=== PATIENT | male | born 1950 | race Caucasian/White ===

== ENCOUNTER 2016-08-15 14:29 | Emergency (ER) | payer OTHER ==
[2016-08-15 14:44] VITALS: RESP 16; TEMP 99.1; O2SAT 95
[2016-08-15] MEDS ORDERED: predniSONE 20 MG TAB PO ONE (15:40)
[2016-08-15] MEDS ORDERED: IPRATROPIUM/ALBUTEROL 3 ML DEYVIAL IH ONE (15:40)
--- NOTE | 2016-08-15 15:43 | EDPHY ---
H & P Stated Complaint: dyspnea x7 day, SNOW Time Seen by Provider: 08/15/16 15:34 HPI/ROS: CHIEF COMPLAINT: Dyspnea HISTORY OF PRESENT ILLNESS: The patient is a 66-year-old man with a history of COPD who comes to the emergency department complaining of mild shortness of breath as well as a productive cough for the last 5 days. He states that he was around someone with pneumonia about a week ago. He has not had a fever but has had the chills. No chest pain. No nausea vomiting or GI symptoms. No runny nose or sore throat. No headache. He states that usually when this happens he comes to the ER for a breathing treatment and steroids. He has been using albuterol at home 2-3 times per day without significant improvement. REVIEW OF SYSTEMS: Constitutional: denies: chills, fever, recent illness, recent injury EENTM: denies: blurred vision, double vision, nose congestion Respiratory: See HPI Cardiac: denies: chest pain, irregular heart rate, lightheadedness, palpitations Gastrointestinal/Abdominal: denies: abdominal pain, diarrhea, nausea, vomiting, blood streaked stools Genitourinary: denies: dysuria, frequency, hematuria, pain Musculoskeletal: denies: joint pain, muscle pain Skin: denies: lesions, rash, jaundice, bruising Neurological: denies: headache, numbness, paresthesia, tingling, dizziness, weakness Hematologic/Lymphatic: denies: blood clots, easy bleeding, easy bruising Immunologic/allergic: denies: HIV/AIDS, transplant EXAM: GENERAL: Well-appearing, well-nourished and in no acute distress. HEAD: Atraumatic, normocephalic. EYES: Pupils equal round and reactive to light, extraocular movements intact, sclera anicteric, conjunctiva are normal. ENT: TMs normal, nares patent, oropharynx clear without exudates. Moist mucous membranes. NECK: Normal range of motion, supple without lymphadenopathy or JVD. LUNGS: Breath sounds clear to auscultation bilaterally and equal. No wheezes rales or rhonchi. HEART: Regular rate and rhythm without murmurs, rubs or gallops. ABDOMEN: Soft, nontender, normoactive bowel sounds. No guarding, no rebound. No masses appreciated. BACK: No CVA tenderness, no spinal tenderness, step-offs or deformities EXTREMITIES: Normal range of motion, no pitting or edema. No clubbing or cyanosis. NEUROLOGICAL: Cranial nerves II through XII grossly intact. Normal speech, normal gait. 5/5 strength, normal movement in all extremities, normal sensation PSYCH: Normal mood, normal affect. SKIN: Warm, dry, normal turgor, no visible rashes or lesions. Source: Patient Exam Limitations: No limitations - Personal History Current Tetanus/Diphtheria Vaccine: Yes Current Tetanus Diphtheria and Acellular Pertussis (TDAP): Yes Tetanus Vaccine Date: < 10 YEARS - Medical/Surgical History Hx Asthma: Yes Hx Chronic Respiratory Disease: Yes Hx Diabetes: No Hx Cardiac Disease: No Hx Renal Disease: No Hx Cirrhosis: No Hx Alcoholism: No Hx HIV/AIDS: No Hx Splenectomy or Spleen Trauma: No Other PMH: medical- asthma, anxiety, ADD, hypothyroid. surgical- appy, tonsilectomy, hernia rpr, ORIF tawnya in RLE T/F, COPD - Family History Significant Family History: Hypertension - Social History Smoking Status: Former smoker Alcohol Use: Sober Drug Use: None Constitutional: Initial Vital Signs Temperature (C) 37.3 C 08/15/16 14:41 Heart Rate 95 08/15/16 14:41 Respiratory Rate 16 08/15/16 14:41 Blood Pressure 153/83 H 08/15/16 14:41 O2 Sat (%) 95 08/15/16 14:41 O2 Delivery Mode Room Air O2 (L/minute) 2 Allergies/Adverse Reactions: codeine [Codeine] Allergy (Verified 05/11/16 18:34) Wheezing Home Medications: Medication Instructions Recorded Albuterol Sulfate [Albuterol 1 - 2 puffs IH Q4H 03/10/15 Inhaler Hfa] Amphet Asp and D/Amphet [Adderall 15 mg PO DAILY@08 03/10/15 10 MG (*)] Amphet Asp and D/Amphet [Adderall 25 mg PO DAILY@1500 03/10/15 10 MG (*)] DESVENLAFAXINE SUCCINATE [PRISTIQ] 50 mg PO DAILY 03/10/15 Levothyroxine [Synthroid 75 mcg 75 mcg PO DAILY06 03/10/15 (*)] clonazePAM [Klonopin (*)] 0.5 mg PO QID PRN 03/10/15 Albuterol [Proventil Inhaler HFA 1 - 2 puffs IH Q4 #1 mdi 05/11/16 (*)] predniSONE 20 mg PO BID #8 tablet 05/11/16 AZITHROMYCIN [Z-PACK] 250 mg PO DAILY #6 tab 08/15/16 Albuterol [Proventil Inhaler] 1 - 2 puffs IH Q4H #1 mdi 08/15/16 predniSONE 60 mg PO DAILY #15 tab 08/15/16 Medical Decision Making - Diagnostics EKG Interpretation: An EKG obtained and was read and documented in trace view. Please see trace view for full reading and report. Sinus rhythm, no acute ischemic changes ED Course/Re-evaluation: 4:40 p.m. the patient is feeling much better after albuterol. He is asking to go home. I will write him a prescription for steroids and albuterol. We also discussed antibiotics. Typically he does not need them. Will write him a prescription for Z-Dominik in case his symptoms are not improving or she develops a fever. If he worsens I encouraged him to return here. He understands and agrees with this plan. Differential Diagnosis: Partial list of the Differential diagnosis considered include but were not limited to; bronchitis, upper respiratory tract infection, asthma exacerbation , COPD exacerbation and although unlikely based on the history and physical exam , I also considered PE, acute coronary disease. I discussed these differential diagnoses and the plan with the patient as well as the usual and expected course. The patient understands that the diagnosis is provisional and that in medicine we are not always correct and that further workup is often warranted. Usual and customary warnings were given. All of the patient's questions were answered. The patient was instructed to return to the emergency department should the symptoms at all worsen or return, otherwise to followup with the physician as we discussed. - Data Points Laboratory Results: 08/15/16 15:55 Influenza Typ A,B (DFA) NEGATIVE FOR FLU (NEGATIVE) Medications Given: Discontinued Medications Albuterol/Ipratropium (Duoneb) 3 ml IH EDNOW ONE Stop: 08/15/16 15:41 Last Admin: 08/15/16 15:47 Dose: 3 ml Prednisone (Prednisone) 60 mg PO EDNOW ONE Stop: 08/15/16 15:41 Last Admin: 08/15/16 15:48 Dose: 60 mg Departure - Departure Disposition: Home, Routine, Self-Care Clinical Impression: Bronchitis Condition: Fair Instructions: Acute Bronchitis (ED) Referrals: Richard Bolanos MD [Primary Care Provider] - As per Instructions Prescriptions: Albuterol [Proventil Inhaler] 1 - 2 puffs IH Q4H #1 mdi AZITHROMYCIN [Z-PACK] 250 mg PO DAILY #6 tab predniSONE 60 mg PO DAILY #15 tab
--- NOTE | 2016-08-15 15:45 | CPEKG ---
Heart Rate: 99 RR Interval: 606 P-R Interval: 160 QRSD Interval: 88 QT Interval: 348 QTC Interval: 447 P Durham: 79 QRS Durham: 57 T Wave Durham: 55 EKG Severity - NORMAL ECG - EKG Impression: SINUS RHYTHM Electronically Signed By: Reji Awad 15-Aug-2016 15:55:03
[2016-08-15 16:53] VITALS: BP 149/75; PULSE 85
== END 2016-08-15 16:55 | disposition home or self-care (01) ==
DX: J20.9 Acute bronchitis, unspecified (principal); J45.909 Unspecified asthma, uncomplicated; Z87.891 Personal history of nicotine dependence

== ENCOUNTER 2016-11-07 13:07 | Emergency (ER) | payer OTHER ==
[2016-11-07 13:15] VITALS: O2SAT 95
--- NOTE | 2016-11-07 13:29 | EDPHY ---
H & P Time Seen by Provider: 11/07/16 13:13 HPI/ROS: CHIEF COMPLAINT: Right medial knee pain x3 months HISTORY OF PRESENT ILLNESS: 66-year-old male arrives via private vehicle complaining of atraumatic right medial knee pain which started after he was caring for his elderly father having to lift and twist and felt a popping sensation at that time. No direct trauma or fall to this area. He has been able to continue working at the [employer] albeit with pain. No fever no chills no flu-like symptoms. PHYSICAL EXAM (Prior to examination, patient consented to physical exam, hands were washed and my usual and customary physical exam procedures followed) 1) GENERAL: Well-developed, well-nourished, alert and oriented. Appears to be in no acute distress. 2) HEAD: Normocephalic 3) HEENT: Pupils equal, round, reactive to light bilaterally. 4) LUNGS: Breathing comfortably. 5) MUSCULOSKELETAL: Exam of the Right knee shows normal visualization, normal color normal temperature. Tender to palpation medial aspect. Reproducible pain to the medial aspect of range of motion and torquing of the knee joint. No pain with axial loading. No gross instability. . Compartments are soft. Negative Homans no palpable cord. No soft tissue swelling. 6) SKIN: normal color normal temperature 7) VASCULAR: DP,PT pulses and cap refill present and brisk distally DIFFERENTIAL DIAGNOSIS: in no particular order including but not limited to fracture, sprain, compartment syndrome, septic arthritis, DVT MEDICAL DECISION MAKING Serial evaluations performed on patient,The most recently at 2:02 p.m., discussed his imaging results. I discussed the limitations of x-ray in diagnosis of knee pain and injury. At this time I do not think that emergent MRI is currently indicated. I think that DVT , septic arthritis, are less than likely in this patient and absence of flu-like symptoms, absence of physical exam findings that are consistent with DVT or septic arthritis. I have recommended follow-up with Orthopedic surgery and provided this referral information. Informed the patient that outpatient MRI may be indicated. Doubt septic arthritis. Doubt compartment syndrome. Doubt DVT. Smoking Status: Former smoker Constitutional: Initial Vital Signs Temperature (C) 36.6 C 11/07/16 13:09 Heart Rate 99 11/07/16 13:09 Respiratory Rate 20 11/07/16 13:09 Blood Pressure 128/79 H 11/07/16 13:09 O2 Sat (%) 95 11/07/16 13:09 O2 Delivery Mode Room Air Allergies/Adverse Reactions: codeine [Codeine] Allergy (Verified 05/11/16 18:34) Wheezing Home Medications: Medication Instructions Recorded Albuterol Sulfate [Albuterol 1 - 2 puffs IH Q4H 03/10/15 Inhaler Hfa] Amphet Asp and D/Amphet [Adderall 15 mg PO DAILY@08 03/10/15 10 MG (*)] Amphet Asp and D/Amphet [Adderall 25 mg PO DAILY@1500 03/10/15 10 MG (*)] DESVENLAFAXINE SUCCINATE [PRISTIQ] 50 mg PO DAILY 03/10/15 Levothyroxine [Synthroid 75 mcg 75 mcg PO DAILY06 03/10/15 (*)] clonazePAM [Klonopin (*)] 0.5 mg PO QID PRN 03/10/15 Albuterol [Proventil Inhaler HFA 1 - 2 puffs IH Q4 #1 mdi 05/11/16 (*)] predniSONE 20 mg PO BID #8 tablet 05/11/16 AZITHROMYCIN [Z-PACK] 250 mg PO DAILY #6 tab 08/15/16 Albuterol [Proventil Inhaler] 1 - 2 puffs IH Q4H #1 mdi 08/15/16 predniSONE 60 mg PO DAILY #15 tab 08/15/16 MDM/Departure - MDM Imaging Results: Imaging Impressions Knee X-Ray 11/07/16 13:25 Impression: 1. No effusion or explanation for pain. 2. Well-seated hardware in the tibial shaft and old healed proximal fibular fracture. images reviewed by myself Procedures: Procedure: Splint A knee immobilizer splint was applied by ER vending technician. After application of the splint I returned and re-examined the patient. The splint was adequately immobilizing the joint and distal to the splint the patient's circulation and sensation were intact. Patient shows no signs of compartment syndrome. Was given orthopedic precautions. We had a lengthy discussion prior to placement of the splint name without will limit his range of motion could present a trip as read and he was allowed to ambulate around the emergency department with splint in place and he states that he feels improvement, increased ability and increased safety after placement of the splint. - Depart Disposition: Home, Routine, Self-Care Clinical Impression: Right medial knee pain Condition: Good Instructions: Knee Sprain (ED) Additional Instructions: Return to the ER immediately if you experience discoloration, have worsening pain, numbness, tingling, or any other symptoms that concern you. If you received x-rays in the emergency department today, be advised, that ligamentous , tendon, muscular, and other non-bony injury cannot be fully ruled out. Try to keep your affected extremity elevated above the level of your chest, and keep cold packs on the affected area, for the next 48 hours. Referrals: Andrei Curran MD [Medical Doctor] - 1-2 days without fail
[2016-11-07 14:21] VITALS: BP 122/76; PULSE 69; RESP 17; TEMP 98.1
== END 2016-11-07 14:20 | disposition home or self-care (01) ==
DX: M25.561 Pain in right knee (principal); Z87.891 Personal history of nicotine dependence
CPT/HCPCS: 73564; 99283; L1830

== ENCOUNTER 2018-11-14 18:18 | Emergency (ER) | payer OTHER | END 2018-11-14 19:47 | disposition home or self-care (01) | LOC: CED 18:18 ==